=== PATIENT | male | born 1990 | race African-American/Black ===

== ENCOUNTER 2017-09-01 09:35 | Emergency (ER) | payer MEDICAID, OTHER ==
[~2017-09-01] VITALS: Ht 175.3 cm; Wt 77.0 kg
[2017-09-01] MEDS ORDERED: ACETAMINOPHEN 500MG TABLET PO ONE (12:30)
[2017-09-01] MEDS ORDERED: IBUPROFEN 600MG TABLET PO ONE (12:30)
[2017-09-01 13:03] VITALS: BP 118/82
== END 2017-09-01 13:06 | disposition home or self-care (01) ==
LOC: ER 09:43
DX: M23.91 Unspecified internal derangement of right knee (principal); F12.10 Cannabis abuse, uncomplicated; Z87.828 Personal history of other (healed) physical injury and trauma; X58.XXXA Exposure to other specified factors, initial encounter; Y93.67 Activity, basketball; Y92.89 Other specified places as the place of occurrence of the external cause
CPT/HCPCS: 99283; Z7610

== ENCOUNTER 2018-01-03 00:52 | Emergency (ER) | payer BC, MEDICAID ==
[~2018-01-03] VITALS: Ht 175.3 cm; Wt 80.0 kg
[2018-01-03] MEDS ORDERED: LIDOCAINE HCL 1% 20ML VIAL (Pyxis) INJ MC ONE (03:15)
[2018-01-03] MEDS ORDERED: TETANUS, DIPHTHERIA, PERTUSSIS VAC/PF 0.5ML (>7YR OLD) IM ONE (03:15)
[2018-01-03] MEDS ORDERED: BACITRACIN ZINC OINT UDPKT TOP ONE (03:15)
[2018-01-03] MEDS ORDERED: HYDROCODONE/ACETAMINOPHEN 5/325MG TABLET PO ONE (04:15)
[2018-01-03] MEDS ORDERED: IBUPROFEN 600MG TABLET PO ONE (04:15)
[2018-01-03 05:00] VITALS: BP 113/77
== END 2018-01-03 05:17 | disposition home or self-care (01) ==
LOC: ER 00:52
DX: S01.81XA Laceration without foreign body of other part of head, initial encounter (principal); W22.8XXA Striking against or struck by other objects, initial encounter; Y93.89 Activity, other specified; Y92.89 Other specified places as the place of occurrence of the external cause; Y99.8 Other external cause status; Z23 Encounter for immunization
CPT/HCPCS: 12002; 99283; J3490; X7700; Z7610; 90715

== ENCOUNTER 2018-01-15 17:09 | Emergency (ER) | payer BC, MEDICAID ==
[~2018-01-15] VITALS: Ht 160 cm; Wt 82.0 kg
[2018-01-15 17:18] VITALS: BP 120/73
== END 2018-01-15 17:32 | disposition home or self-care (01) ==
LOC: ER 17:26
DX: Z48.02 Encounter for removal of sutures (principal); X58.XXXD Exposure to other specified factors, subsequent encounter
CPT/HCPCS: 99281